=== PATIENT | female | born 1960 | race Caucasian/White ===

== ENCOUNTER → 2024-04-05 | Outpatient (CLI) | payer OTHER, SELFPAY ==
[2024-04-05 15:50] LABS: Calcium,Total 9.9 mg/dL (8.5-10.1)
[2024-04-05 15:56] LABS: PTHIN 30.4 pg/mL (18.4-80.1)
[2024-04-07 08:13] LABS: Thyroid Peroxidase AB 19 IU/mL (0-34)
== END | disposition home or self-care (01) ==
LOC: MTLAB 12:35
PROVIDERS: Referring Provider Dermatology Pediatric Dermatology; Visit Provider Dermatology Pediatric Dermatology
DX: L64.8 Other androgenic alopecia (principal); L90.0 Lichen sclerosus et atrophicus
CPT/HCPCS: 36415; 82310; 83970; 86376